=== PATIENT | male | born 1950 | race Caucasian/White ===

== ENCOUNTER 2019-10-27 08:09 | Day surgery (SDC) | payer MEDICAID ==
--- NOTE | 2019-10-27 06:52 | History and Physical - [facility] ---
CHIEF COMPLAINT/HISTORY OF CHIEF COMPLAINT: This patient presents with a history of an intractable lumbar radiculopathy. Due to the failure of all therapies, a spinal cord stimulator trial was conducted on 09/21/19 with 75+% pain control. Due to the failure of therapy and the success of the trial, the patient presents for implantation of a permanent system. PAST MEDICAL HISTORY: Chronic headaches, sleep apnea, thrombophlebitis, hypertension, peripheral edema, and degenerative arthritis. PAST SURGICAL HISTORY: Total ankle replacement. EMPLOYMENT STATUS: Retired. MEDICATIONS ON ADMISSION: List to be provided. No blood thinners. ALLERGIES: None. FAMILY/PSYCHOSOCIAL HISTORY: Social history - Noncontributory. Family history - Hypertension. SYSTEMS REVIEW: The patient is appropriate in no acute distress. PHYSICAL EXAMINATION: Height is 5'10", weight is 170. No vital signs. HEENT: Within normal limits. LUNGS: Clear. HEART: Rapid and regular. ABDOMEN: Nontender. MUSCULOSKELETAL: Examination of the musculoskeletal system shows diffuse tenderness throughout the lumbar spine. Range of motion produces pain to both legs, right greater than left. There are mild motor and mild sensory abnormalities into both legs. Ambulation - No assistive device utilized. NEUROLOGIC: Cranial nerves are intact. IMPRESSION: LUMBAR RADICULOPATHY, ICD-10 CODE M54.16 AND M54.17. PLAN: The patient is here for implantation of a spinal cord stimulator on an outpatient basis based upon successful trial and the failure of other therapies. The potential risks, side effects and complications have all been reviewed and discussed and the patient understands and has consented. JOB NUMBER: [id number] MTDD
[~2019-10-27 08:09] MED LIST: ACETAMINOPHEN 1,000 MG/100 ML BTL IVPB ONE; CEFAZOLIN 2 Gram 2 GM/50 ML BAG IVPB ONE; FAMOTIDINE 20MG TABLET PO ONE; MECLIZINE 25 MG TABLET PO ONE; METOCLOPRAMIDE 10 MG TABLET PO ONE
[2019-10-27] MEDS ORDERED: MIDAZOLAM HCL 2MG/2ML VIAL IV ONE (08:10)
[2019-10-27] MEDS ORDERED: FENTANYL PF 100MCG/2ML VIAL IV ONE (08:10)
[2019-10-27] MEDS ORDERED: LIDOCAINE 2% MDV (20MG/ML) 20ML VIAL IV ONE (08:10)
[2019-10-27] MEDS ORDERED: HYDROMORPHONE HCL 2 MG/ML VIAL IV ONE (08:10)
[2019-10-27] MEDS ORDERED: PROPOFOL 10 MG/ML VIAL IV ONE (08:10)
[2019-10-27] MEDS ORDERED: RINGERS SOLUTION,LACTATED 1,000 ML IV ONE (08:53)
[2019-10-27] MEDS ORDERED: BUPIVACAINE 0.5% W/EPI MPF 30 ML VIAL SQ ONE (10:39)
[2019-10-27] MEDS ORDERED: LIDOCAINE 1% W/EPI 1:100,000 MDV 20 ML VIAL SQ ONE (10:39)
[2019-10-27] MEDS ORDERED: CEFAZOLIN 1G VIAL IR ONE (10:40)
--- NOTE | 2019-10-28 07:06 | RADIOLOGY REPORT ---
EXAMINATION: Spine Single View EXAM DATE: 10/27/2019 11:46 AM TECHNIQUE: Lateral view INDICATION: S/P SCS IMPLANT, LEADS AND GENERATOR COMPARISON: None ENCOUNTER: Initial FINDINGS: Leads project over the midthoracic spine. Generator projects over right abdomen. IMPRESSION: 1. Leads project over the mid thoracic spine. Dictated by: Edvin Chicas DO on 10/28/2019 7:03 AM. .
--- NOTE | 2019-10-28 09:28 | Operative Note - [facility] ---
DATE OF SURGERY: 10/27/2019 PREOPERATIVE DIAGNOSIS: LUMBAR RADICULOPATHY, ICD-10 CODE M54.16 AND M54.17. OPERATION: 1. FLUOROSCOPICALLY GUIDED LEFT EPIDURAL ACCESS T11-T12, PLACEMENT OF SPINAL CORD STIMULATOR LEAD 1 [employer] 16, 6-ELECTRODES POSITIONED LEFT T7. 2. FLUOROSCOPICALLY GUIDED EPIDURAL ACCESS T12-L1, PLACEMENT OF SPINAL CORD STIMULATOR LEAD 2 [employer] 16, 6-ELECTRODES POSITIONED RIGHT T7. 3. COMPLEX PROGRAMMING LEAD 1 OVER TWENTY MINUTES FOLLOWED BY COMPLEX PROGRAMMING LEAD 2 OVER TWENTY MINUTES. 4. INCISION, SUBCUTANEOUS DISSECTION, ANCHORING LEAD 1 AND LEAD 2 TO SUPRASPINOUS FASCIA WITH A [employer] LOCKING ANCHOR AND NONABSORBABLE SUTURE. 5. INCISION, SUBCUTANEOUS DISSECTION, CREATION OF SUBCUTANEOUS POUCH RIGHT FLANK FOR PLACEMENT OF GENERATOR AT THE SITE PICKED BY THE PATIENT, GENERATOR [employer] PROGRAMMABLE RECHARGEABLE WAVEWRITER. 6. TUNNELLING BETWEEN POUCHES, PLACEMENT OF EXTERNAL PORTION OF LEAD 1 AND LEAD 2 INTO GENERATOR POUCH EACH LEAD INTERFACED WITH GENERATOR. 7. PLACEMENT OF GENERATOR POUCH, PLACEMENT OF LEADS INTO POUCH, CLOSURE OF BOTH INCISIONS USING STRATAFIX SUTURE 2-0 FASCIA, 3-0 SKIN. DERMABOND CLOSURE. 8. COMPLEX RECOVERY ROOM PROGRAMMING INTERNAL GENERATOR HOME USE TWO STIMULATORS RECOVERY ROOM TWENTY MINUTES. SURGEON: Carine Montiel D.O. ANESTHESIA PROVIDER: RICHARD Burns CRNA INDICATION: This patient presents with a history of an intractable lumbar radiculopathy. Due to the failure of all therapies, a spinal cord stimulator trial was conducted with 75-85% pain control. Due to the failure of all therapies and the success of the trial, the patient presents today for implantation of a permanent system. PROCEDURE: Intravenous line, vital sign monitoring, IV sedation, prepped and draped, sterile technique. The patient was positioned prone. Sterile prep. Sterile technique. Imaging for guidance, local for infiltration. The epidural interspace left of the midline at T11-T12 and T12-L1 were both marked, the skin was infiltrated each of the sites. Using stated epidural needles with loss of resistance the space was accessed at each level, atraumatic, no blood, no CSF. At T11-T12 the spinal cord stimulator Lead 1 a [employer] 16, 6-electrodes positioned left of midline at T7. With the access on the right the spinal cord stimulator Lead 2 [employer] 16, 6- electrodes positioned right at T7. Complex programming of Lead 1 over twenty minutes followed by complex programming of Lead 2 over twenty minutes resulting in a complete pattern of stimulation across the back into the legs. The patient indicated we hit all of the areas of the pain. He was given the option to implant, continue to program or remove and he opted to implant. The question was repeated with the same response. The skin below both needles was then infiltrated with local, an incision made and subcutaneous dissection was conducted to the supraspinous fascia. Each of the leads was then anchored to the supraspinous fascia with a [place] locking anchor. At the right flank which was the site picked by the patient for the generator the skin was infiltrated, an incision was made, and subcutaneous dissection was conducted to form a pouch of suitable size and depth. The generator [place] programmable rechargeable WaveWriter. A tunnelling tool was used to carry the leads into the generator pouch and then each lead was interfaced with the generator. Antibiotic irrigation, Bovie for hemostasis. The generator was then placed into the pouch, the leads were placed in their own pouch and both incisions were closed using Stratafix suture 2-0 fascia and 3-0 skin. A Dermabond closure was then used to approximate the edges of both wounds. He was transferred to the Recovery Room stable. No side effects from the procedure or sedation. When fully awake and alert, complex programming of the two leads with the internal generator performed over twenty minutes reestablishing stimulation and pain control to all appropriate areas. He was instructed on the use of the system, provided information on error messaging, and then prepared for discharge. DISCHARGE INSTRUCTIONS: 1. The sites are to remain clean and dry. No showering or bathing in any way that would disrupt the dressings. When it happens contact the clinic. 2. Standard medications will be resumed including the antibiotic Levaquin 500 mg once a day for fourteen days. A prescription has been provided for [place] to help manage incisional pain. All other instructions are provided. Numbers to contact if problems given. He will be contacted by the office in 12-24 hours to set up a time in 7-10 days to evaluate the sites, until then activity should stay low. He was then discharged stable. JOB NUMBER: [id number] [facility]
== END 2019-10-27 12:43 | disposition home or self-care (01) ==
LOC: SUR 08:09
PROVIDERS: ATTEND Pain Medicine Interventional Pain Medicine
DX: M54.16 Radiculopathy, lumbar region (principal); M54.17 Radiculopathy, lumbosacral region; I10 Essential (primary) hypertension; G25.81 Restless legs syndrome; Z86.711 Personal history of pulmonary embolism
CPT/HCPCS: 63685; 63650; 00300; 95972; 72020; C1883; C1820; J3010; J1170; J0690; J7120